=== PATIENT | male | born 1940 | race Caucasian/White ===

== ENCOUNTER 2023-09-23 10:49 | Day surgery (SDC) | payer MEDICARE, OTHER, SELFPAY ==
[2023-09-23] VITALS (9 sets, daily range): BP systolic 115–143; BP diastolic 58–79; PULSE 62–78; TEMP 36.4–36.8; O2SAT 93–99; BMI 33.2
--- NOTE | 2023-09-23 | FL_ITS ---
The [address] [address] Patient Name: AHMET JACQUES MRN: [id number] date: 1940 Sex: M Assigned Patient Location: [facility] Current Patient Location: Accession/Order Number: [id number] Exam Date: 09/23/2023 13:00 Report Date: 09/28/2023 08:20 At the request of: ISSA MIXON Procedure: FL fluoroscopy <1hr NON-READ EXAM: FL fluoroscopy <1hr NON-READ HISTORY: TECHNIQUE: FINDINGS: Please see Operative Report. Electronically authenticated by: RADIOLOGIST NO Date: 09/28/2023 08:20
--- NOTE | 2023-09-23 11:19 | ECG_ITS ---
The [facility] Test Date: 2023-09-23 Pat Name: AHMET JACQUES Department: Room: - Gender: Male [employer]: : 1940 Requested By: ISSA MIXON Order Number: [id number] Reading MD: CHRISTA MANZANO Measurements Intervals [place] Rate: 64 P: 66 ID: [id number] QRS: 47 QRSD: 85 T: 39 QT: 403 QTc: 417 Interpretive Statements SINUS RHYTHM No previous ECG available for comparison Electronically Signed On 09-25-2023 7:57:27 EDT by CHRISTA MANZANO
[2023-09-23] MEDS: LACTATED RINGER'S SOLUTION 1,000 ML 50 ML IV (11:46)
[2023-09-23] MEDS: CIPROFLOXACIN IN 5 % DEXTROSE 400 MG/200 ML PIGGYBACK 200 MG IV (13:01)
--- NOTE | 2023-09-23 13:29 | P.URON_ITS ---
Urology Surgery Operative Note Operative Note Procedure Date: 09/23/23 Time Out Performed: yes Pre-op Diagnosis: Obstructing left ureteral calculus Post-op Diagnosis: same as pre-op Procedures performed: 1. Cystoscopy. 2. Placement of 6 Armenian variable length left ureteral stent Anesthesia: General-LMA Primary Surgeon: David Rowe Complications: None Estimated blood loss (mL): 0 Findings: High-grade obstruction from a large proximal left ureteral calculus Specimens: None Drains: 6 Armenian variable length left ureteral stent Indications for Procedures: This gentleman has a 9 mm proximal left ureteral calculus causing obstruction and pain. He now presents for cystoscopy and left stent placement. He has signed an informed consent for these procedures after risks were explained. Detailed description of Procedure: The patient was brought to the operating room and placed on the operating room table in the supine position. SCDs were placed on the lower extremities and turned on and functioning during the entire case. Timeout was done by all parties in the room. We all agreed upon the patient's identification and the planned procedures for this patient. Genn. anesthesia was then administered. The patient was then repositioned into the modified dorsal lithotomy position. All pressure points were satisfactorily padded. Genitalia were sterilely prepped and draped in usual fashion.I started by passing a 22 Armenian Olympus cystoscope per urethra and into the bladder. Anterior urethra was normal. Prostatic urethra was open. Panendoscopy in the bladder showed no evidence of any tumors or stones. While using fluoroscopy I could clearly see his stone in the proximal left ureter area. I then passed a Glidewire through the scope and cannulated the left ureter and was able to get the wire up to the stone. The wire buckled numerous times until finally we got it beyond the stone up into the kidney. There was an immediate E flux of cloudy bloody debris into the bladder.I then slid a 6 Armenian variable length ureteral stent over the wire and with steady pressure was able to get it beyond the stone into the kidney. The wire was removed and there were good curls in the kidney and in the bladder. Now there was a very high pressure E flux of cloudy bloody urine coming down through and around the stent into the bladder. The bladder was drained of its contents and the scope was removed. He was then transferred to a [facility] bed and wheeled to PACU in stable condition.
--- NOTE | 2023-09-23 14:36 | PC.NURSE ---
Has drank 2 large cups of water; denies urge to void
--- NOTE | 2023-09-23 15:14 | PC.NURSE ---
Up to bathroom and voids brown colored urine without clots
== END 2023-09-23 15:16 | disposition home or self-care (01) ==
PROVIDERS: PCP Family Medicine; Visit Provider Urology
PROC: (CPT 52332; principal; 2023-09-23 13:00)
DX: N13.2 Hydronephrosis with renal and ureteral calculous obstruction (principal); N40.1 Benign prostatic hyperplasia with lower urinary tract symptoms; R35.1 Nocturia; N39.41 Urge incontinence; Z79.01 Long term (current) use of anticoagulants; G47.33 Obstructive sleep apnea (adult) (pediatric)
CPT/HCPCS: 52332; 76000; 93005; J0744; J1100; J1885; J2405; J2704; J3010

== ENCOUNTER 2023-10-11 14:41 | Outpatient (OUT) | payer MEDICARE, OTHER, SELFPAY | END 2023-10-11 14:42 | disposition home or self-care (01) | LOC: PST 14:42 | PROVIDERS: PCP Family Medicine; Visit Provider Urology | DX: Z01.818 Encounter for other preprocedural examination (principal); N20.1 Calculus of ureter ==

== ENCOUNTER 2023-10-17 08:12 | Day surgery (SDC) | payer MEDICARE, OTHER, SELFPAY ==
[2023-10-17] VITALS (13 sets, daily range): BP systolic 133–172; BP diastolic 77–100; PULSE 58–77; TEMP 36.2–36.3; O2SAT 93–100; BMI 32.8
--- NOTE | 2023-10-17 | FL_ITS ---
The [address] [address] Patient Name: AHMET JACQUES MRN: [id number] date: 1940 Sex: M Assigned Patient Location: [facility] Current Patient Location: Accession/Order Number: [id number] Exam Date: 10/17/2023 10:45 Report Date: 10/19/2023 12:49 At the request of: ISSA MIXON Procedure: FL fluoroscopy <1hr NON-READ EXAM: FL fluoroscopy <1hr NON-READ HISTORY: TECHNIQUE: FINDINGS: Please see Operative Report. Electronically authenticated by: RADIOLOGIST NO Date: 10/19/2023 12:49
[2023-10-17 08:40] LABS: Anion Gap 11.2; BUN Creatinine Ratio 20.6; Basophils Percent Auto 0.7 % (0.2-2.0); Calcium 8.6 mg/dL (8.5-10.1); Carbon Dioxide 29.4 mmol/L (21.0-32.0); Chloride 106 mmol/L (98-107); Eosinophils Absolute Auto 0.2 10^3/uL (0.0-0.7); Eosinophils Percent Auto 3.4 % (0.9-7.0); Estimated GFR (African America >60 (>=60); Estimated GFR (Non-African Ame >60 (>=60); Glucose 109 mg/dL (74-106); Hematocrit 45.6 % (42.0-54.0); Hemoglobin 15.6 g/dL (14.0-18.0); Immature Granulocytes Abs Auto 0.02 10^3/uL (0.00-0.03); Immature Granulocytes Pct Auto 0.3 % (0.0-0.5); Lymphocytes Absolute Auto 1.2 10^3/uL (1.2-3.8); Lymphocytes Percent Auto 20.9 % (20.5-60.0); Mean Corpuscular HGB Conc 34.2 g/dL (29.9-35.2); Mean Corpuscular Hemoglobin 33.5 pg (25.9-34.0); Mean Corpuscular Volume 98.1 fL (80.0-94.0); Monocytes Absolute Auto 0.6 10^3/uL (0.3-0.8); Monocytes Percent Auto 10.1 % (1.7-12.0); Neutrophils Absolute Auto 3.8 10^3/uL (1.4-6.5); Neutrophils Percent Auto 64.6 % (43.0-75.0); Platelet Count 130 10^3/uL (150-450); Potassium 4.6 mmol/L (3.5-5.1); Red Blood Count 4.65 10^6/uL (4.70-6.10); Red Cell Distribution Width 12.6 % (11.0-15.0); Sodium 142 mmol/L (136-145); White Blood Count 5.8 10^3/uL (4.0-11.0)
[2023-10-17 08:51] LABS: INR 1.04; Partial Thromboplastin Time 26.8 sec (22.3-36.2)
[2023-10-17 08:59] LABS: Mean Platelet Volume 10.9 fL (9.5-13.5)
[2023-10-17] MEDS: LACTATED RINGER'S SOLUTION 1,000 ML 50 ML IV ×2 (09:10→12:30)
[2023-10-17] MEDS: CIPROFLOXACIN IN 5 % DEXTROSE 400 MG/200 ML PIGGYBACK 200 MG IV (10:46)
--- NOTE | 2023-10-17 11:55 | P.URON_ITS ---
Urology Surgery Operative Note Operative Note Procedure Date: 10/17/23 Time Out Performed: yes Pre-op Diagnosis: Obstructing left proximal ureteral calculus; status post left stent placement Post-op Diagnosis: same as pre-op Procedures performed: 1. Cystoscopy. 2. Left stent changed to 6 Norwegian variable length. 3. Left ureteroscopy. 4. Thulium laser lithotripsy of large left ureteral calculus. 5. Stone fragment basket extraction. Anesthesia: General-LMA Primary Surgeon: David Rowe Complications: None Estimated blood loss (mL): 5 Findings: Large hard proximal ureteral calculus Specimens: Left ureteral calculus fragments Drains: 6 Norwegian variable length left ureteral stent Indications for Procedures: This gentleman has a 9 to 10 mm left proximal ureteral calculus for which he has been stented. He now presents for definitive ureteroscopic laser lithotripsy and stent change or removal. He has signed an informed consent after risks were explained. Detailed description of Procedure: The patient was brought to the operating room and placed on the operating room table in the supine position. SCDs were placed on the lower extremities and turned on and functioning during the entire case. Timeout was done by all parties in the room. We all agreed upon the patient's identification and the planned procedures for this patient. Genn. anesthesia was then administered. The patient was then repositioned into the modified dorsal lithotomy position. All pressure points were satisfactorily padded. Genitalia were sterilely prepped and draped in usual fashion. I started by passing a 22 Norwegian Olympus cystoscope per urethra and into the bladder. The anterior urethra was normal. The prostatic urethra was open. The stent was not encrusted. I then passed a flexible grasping forceps and grasped the end of the stent and brought it out the urethral meatus. I then slid a Glidewire through the end of the stent up into the kidney and removed the old stent. A 10/12 ureteral access sheath was passed over the wire and up the ureter. The stylette and wire were then removed. I then passed a flexible ureteroscope through the access sheath and into the ureter. I was able to get right up to the stone. I then used a 200 Angstrom laser fiber and made contact with the stone. I then began doing laser lithotripsy at 6 W continuously. The stone slowly steadily fragmented. I then used a 0 tip nitinol basket and engaged pieces and extracted them down and out. These were sent for stone analysis. I went up and down the ureter numerous times extracting all pieces from the ureter. Once the ureter was free of all stone the scope was then removed. I then passed a Glidewire through the sheath into the kidney and removed the access sheath. The cystoscope was backloaded over the wire and passed into the bladder. I then slid a new 6 Norwegian variable length ureteral stent over the wire up to the kidney. The wire was removed and there were good curls in the kidney and in the bladder. The bladder was drained of its contents and the scope was then removed. He was then transferred to [facility] bed and wheeled to PACU in stable condition.
== END 2023-10-17 14:00 | disposition home or self-care (01) ==
PROVIDERS: PCP Family Medicine; Visit Provider Urology
PROC: (CPT 52356; principal; 2023-10-17 09:45)
DX: N13.2 Hydronephrosis with renal and ureteral calculous obstruction (principal); N40.1 Benign prostatic hyperplasia with lower urinary tract symptoms; N39.41 Urge incontinence; R35.1 Nocturia; Z79.01 Long term (current) use of anticoagulants; Z90.49 Acquired absence of other specified parts of digestive tract; Z86.718 Personal history of other venous thrombosis and embolism
CPT/HCPCS: 52356; 36415; 76000; 80048; 82365; 85025; 85610; 85730; 99999; J0744; J1100; J2405; J2704; J3010